=== PATIENT | female | born 1960 | race Caucasian/White ===

== ENCOUNTER 2019-01-24 11:06 | Day surgery (SDC) | payer MEDICARE, MEDICAID ==
--- NOTE | 2019-01-24 06:44 | History and Physical - [place] ---
CHIEF COMPLAINT/HISTORY OF CHIEF COMPLAINT: This patient presents with a history of intractable lumbar radiculopathy. Due to the failure of all therapies, on 12/28/18 a spinal cord stimulator trial was conducted with 75-85% pain control. Due to the failure of previous therapies and the success of the trial, the patient presents today for implantation of a permanent system. PAST MEDICAL HISTORY: Hypertension and sleep apnea. PAST SURGICAL HISTORY: Shoulder surgery, ankle surgery, hand surgery, and bladder surgery. EMPLOYMENT STATUS: Not identified. MEDICATIONS ON ADMISSION: List to be provided. ALLERGIES: None. FAMILY/PSYCHOSOCIAL HISTORY: Social history - Noncontributory. Family history - Asthma, diabetes, hypertension and cancer. SYSTEMS REVIEW: The patient seems appropriate in no acute distress. The remainder of the systems review is positive for headaches, breathing difficulties, blood pressure, bladder dysfunction, degenerative arthritis, fibromyalgia, depression, and difficulty sleeping. PHYSICAL EXAMINATION: Height is 5'1", weight is 180. No vital signs. HEENT: Within normal limits. LUNGS: Clear. HEART: Rapid and regular. ABDOMEN: Nontender. MUSCULOSKELETAL: Examination of the musculoskeletal system shows diffuse tenderness throughout the thoracic and lumbar spine. Focal areas are lumbar. Range of motion produces pain throughout the low back and extending into the lower extremities somewhat more left than right. Motor and sensory field evaluation show weakness left lower extremity with some sensory abnormalities across L4 and L5. Ambulation - Antalgic. Assistive device utilized. NEUROLOGIC: Cranial nerves are intact. IMPRESSION: LUMBAR RADICULOPATHY, ICD-10 CODE M54.16 AND M54.17. PLAN: The patient is here for a permanent spinal cord stimulator due to the failure of therapies and the success of the trial. The procedure will be considered outpatient although an overnight stay will be evaluated. Potential risks, side effects, and complications have all been carefully reviewed. JOB NUMBER: [id number] MTDD
[~2019-01-24 11:06] MED LIST: ACETAMINOPHEN 1,000 MG/100 ML BTL IV ONE; CEFAZOLIN 2 Gram 2 GM/50 ML BAG IVPB ONE; FAMOTIDINE 20MG TABLET PO ONE; MECLIZINE 25 MG TABLET PO ONE; METOCLOPRAMIDE 10 MG TABLET PO ONE
[2019-01-24] MEDS ORDERED: LIDOCAINE 2% MDV (20MG/ML) 20ML VIAL IV ONE (11:07)
[2019-01-24] MEDS ORDERED: 0.9 % SODIUM CHLORIDE 10 ML VIAL IVP ONE (11:07)
[2019-01-24] MEDS ORDERED: LIDOCAINE 1% W/EPI 1:200,000 MPF 30ML SQ ONE (11:07)
[2019-01-24] MEDS ORDERED: FENTANYL PF 100MCG/2ML VIAL IV ONE (11:07)
[2019-01-24] MEDS ORDERED: GLYCOPYRROLATE 0.2 MG/ML ML IV ONE (11:07)
[2019-01-24] MEDS ORDERED: CEFAZOLIN 1G VIAL IM ONE (11:07)
[2019-01-24] MEDS ORDERED: MIDAZOLAM HCL 2MG/2ML VIAL IV ONE (11:07)
[2019-01-24] MEDS ORDERED: BUPIVACAINE 0.5% W/EPI MPF 30 ML VIAL IVP ONE (11:07)
[2019-01-24] MEDS ORDERED: KETAMINE HCL 100MG/1ML VIAL INJ ONE (11:07)
[2019-01-24 11:50] LABS: PARTIAL THROMBOPLASTIN TIME 26.4 SECONDS (24.5-39.1); PROTHROMBIN TIME (PATIENT) 10.2 SECONDS (9.5-12.1)
[2019-01-24 11:56] LABS: BLEEDING TIME 4.5 MINUTES (1.5-7.0)
--- NOTE | 2019-01-26 08:24 | Operative Note ---
DATE: 01/24/2019. PREOPERATIVE DIAGNOSIS: LUMBAR RADICULOPATHY, ICD-10 CODE M54.16 AND M54.17. POSTOPERATIVE DIAGNOSIS: LUMBAR RADICULOPATHY, ICD-10 CODE M54.16 AND M54.17. ANESTHESIA: Local sedation. ANESTHESIA PROVIDER: Elier Londono CRNA. PROCEDURES: 1. Fluoroscopically guided left epidural access at T11-12. Placement of spinal cord stimulator lead 1, a [employer]on 16 with 16 electrodes, positioned left T7. 2. Fluoroscopically guided left epidural access at T12-L1. Placement of spinal cord stimulator lead 2, a [employer] 16 with 16 electrodes, positioned right T7. 3. Complex programming of lead 1 over 20 minutes followed by complex programming of lead 2 over 20 minutes. 4. Incision, subcutaneous dissection, and anchoring of leads 1 and 2 to the supraspinous fascia with a CryptoSeal locking anchor and nonabsorbable suture. 5. Incision, subcutaneous dissection, and creation of subcutaneous pouch at the left posterior gluteal margin for placement of generator identified as a CryptoSeal programmable rechargeable WaveWriter generator. 6. Tunnelling between lead pouches with placement of leads into generator pouch , each lead interfaced to the generator. 7. Placement of generator into pouch. Placement of leads into the pouch. 8. Closure of both incisions using Stratafix suture; #2-0 for the fascia and #3 -0 for the skin. Dermabond closure. 9. Complex recovery room programming of the internal generator for home use, two stimulators, for 20 minutes. SURGEON: Ermias Downs D.O. INDICATIONS: This patient presents with a history of intractable lumbar radiculopathy. Due to the failure of therapies a spinal cord stimulator trial was conducted with 75 to 85 percent pain control. Due to the failure of all therapies and the success of the trial, she presents today for implantation of a permanent system. DESCRIPTION OF PROCEDURE: Intravenous line, vital sign monitoring, and intravenous sedation. Prepped and draped with sterile technique. Under imaging the epidural interspaces left of the midline at T11-12 and 12-1 were both identified, marked, and infiltrated. Using two separate curved-access Epimed needles with loss of resistance the space was accessed. This was done atraumatically with no blood and no cerebrospinal fluid. At 11-12, spinal cord stimulator lead 1, a [employer]ineon 16 with 16 electrodes, was advanced left of midline and positioned at T7. With the left epidural access at 12-1, spinal cord stimulator lead 2, a [employer]on 16 with 16 electrodes was positioned right of midline at T7. Complex programming of lead 1 over 20 minutes was followed by complex programming of lead 2 over 20 minutes. This resulted in complete patterns of stimulation across the back and into the legs. The patient indicated we were in all of the areas of the pain. She was then given the options to implant, continue to program, or remove. She opted to implant. The questions were repeated with the same response. She was then resedated by Anesthesia. The skin above and below both needles was infiltrated. An incision was made, and subcutaneous dissection was conducted to the supraspinous fascia. The needles were removed and then each lead was anchored to the supraspinous fascia with a CryptoSeal locking anchor and nonabsorbable suture. At the left posterior gluteal margin, the site picked by the patient for the generator, the skin was infiltrated. An incision was made and subcutaneous dissection was conducted to form a pouch of suitable size and depth for the generator, a CryptoSeal programmable rechargeable WaveWriter generator. A tunneling tool was used to carry the leads into the generator pouch, and then each lead was interfaced to the generator. Antibiotic irrigation and Bovie for hemostasis. The generator was then placed into the pouch and the leads were placed into their own pouch. Both incisions were then closed using Stratafix suture; #2-0 for the fascia and #3-0 for the skin. Dermabond closure approximated the edges of both wounds. The patient was then transported to the recovery room stable with no side effects from the procedure or the sedation. When fully awake and alert, complex programming of the generator was performed over 20 minutes, re-establishing stimulation of pain control to all of the appropriate areas. The patient was instructed on use of the system and was provided with information on error messaging. She was then prepared for discharge. DISCHARGE INSTRUCTIONS: 1. The sites are to remain clean and dry. No showering or bathing in any way that would disrupt dressings. If this happens, contact the clinic. 2. Standard medications to be resumed including the antibiotic Levaquin 500 mg once a day for 14 days. 3. The office is to contact the patient in 12 to 24 hours to set up a time in the next 7 to 10 days for us to evaluate the sites. Until that time she is to keep her activities low and controlled and limit bend, lift, push, and pull. 4. The Dermabond will allow showering, but she should not sit in water. 5. All other instructions were provided including numbers to contact with problems. She was then prepared for discharge. JOB NUMBER: [id number] cc: [address].
--- NOTE | 2019-01-26 11:01 | RADIOLOGY REPORT ---
DATE: 01/24/2019. EXAM: SPINE RADIOGRAPH. HISTORY: Status post spinal cord stimulator implant. TECHNIQUE: A single frontal view of the thoracolumbar spine. COMPARISON: None. FINDINGS: Stimulator device is present. Generator pack superimposes the left lower abdomen. Leads superimpose the T7 through T9 vertebrae. For additional details, please refer to the operative report. Lumbar spine degenerative findings with prominent osteophytes at the lower levels. IMPRESSION: ABOVE. Job Number: [id number] MTDD
== END 2019-01-24 15:09 | disposition home or self-care (01) ==
LOC: SUR 11:06
PROVIDERS: ATTEND Pain Medicine Interventional Pain Medicine
DX: M54.16 Radiculopathy, lumbar region (principal); M54.17 Radiculopathy, lumbosacral region; I10 Essential (primary) hypertension; E78.00 Pure hypercholesterolemia, unspecified; K21.9 Gastro-esophageal reflux disease without esophagitis; R60.9 Edema, unspecified; J45.909 Unspecified asthma, uncomplicated; G47.33 Obstructive sleep apnea (adult) (pediatric)
CPT/HCPCS: 63650; 63685; 01936; 95972; 85730; 85610; 85002; 72020; J3010; J0690; J3490; C1820; C1883